=== PATIENT | male | born 1950 | race African-American/Black ===

== ENCOUNTER 2018-08-25 16:51 | Inpatient (IN) | payer OTHER, MEDICAID ==
[~2018-08-25] VITALS: Ht 188 cm; Wt 112.2 kg
[2018-08-25 19:01] LABS: Basophils # (auto) 0 uL; Basophils % (auto) 0.3 % (0.0-2.0); Eosinophils # (auto) 0 uL; Hematocrit 39.9 % (41.0-53.0); Hemoglobin 13.1 g/dL (13.5-17.5); Lymphocytes # (auto) 0.7 uL; Lymphocytes % (auto) 12.1 % (10.0-50.0); Mean Corpuscular Hemoglobin 28.5 pg (28.0-32.0); Mean Corpuscular Hgb Conc. 32.8 g/dL (32.0-36.0); Mean Corpuscular Volume 86.9 fL (80.0-100.0); Monocytes # (auto) 0.3 uL; Monocytes % (auto) 5.6 % (0.0-12.0); Neutrophils # (auto) 4.7 uL; Platelet Count (auto) 110 10^3/uL (140-450); Red Blood Cells 4.59 10^6/uL (4.5-5.90); Red Cell Distribution Width 16.4 % (11.8-14.3); White Blood Cell 5.7 10^3/uL (4.4-10.8)
[2018-08-25 19:17] LABS: INR 1.05 (0.9-1.15); Partial Thromboplastin Time 25.5 sec (23.64-32.05)
[2018-08-25 19:21] LABS: Alanine Aminotransferase 72 U/L (16-61); Albumin 3.5 g/dL (3.4-5.0); Anion Gap 12 (5-15); Aspartate Aminotransferase 63 U/L (15-37); BUN/Creatinine Ratio 26.9; Blood Urea Nitrogen 32 mg/dL (7-18); Calcium 8.4 mg/dL (8.5-10.1); Carbon Dioxide 24 mmol/L (21-32); Chloride 105 mmol/L (98-107); GFR African American 78 mL/min; GFR Non-African American 64 mL/min; Glucose 271 mg/dL (74-106); Magnesium 2.2 mg/dL (1.6-2.6); Potassium 4.3 mmol/L (3.5-5.1); Sodium 141 mmol/L (136-145)
[2018-08-25 19:26] LABS: Alkaline Phosphatase 66 U/L (45-117); Bilirubin, Total 0.5 mg/dL (0.2-1.0); Total Protein 8.6 g/dL (6.4-8.2)
[2018-08-25] MEDS ORDERED: ACETAMINOPHEN 325 MG TAB PO PRN (20:45)
[2018-08-25] MEDS ORDERED: ENOXAPARIN SOD 100 MG/1 ML SYRINGE SC ONE (20:45)
[2018-08-25] MEDS ORDERED: NITROGLYCERIN 0.4 MG SL TAB SL PRN (20:45)
[2018-08-25] MEDS ORDERED: DEXTROSE (50%) 50ML SYRG IV PRN (20:45)
[2018-08-25] MEDS ORDERED: MORPHINE SULF INJ 2 MG/ML SYRINGE 1ML IV PRN (20:45)
[2018-08-25] MEDS ORDERED: TEMAZEPAM 15 MG CAP PO PRN (20:45)
[2018-08-25] MEDS ORDERED: FUROSEMIDE 40 MG/4 ML VIAL IV ONE (20:45)
[2018-08-25] MEDS ORDERED: ONDANSETRON HCL 4 MG/2 ML VIAL IV PRN (20:45)
[2018-08-25] MEDS ORDERED: cefTRIAXone 1GM/50ML D5W 50 ML IV ONE (22:00)
[2018-08-25] MEDS: FAMOTIDINE 20 MG TAB PO SCH (22:17)
[2018-08-25] MEDS: ATORVASTATIN 20 MG TAB PO SCH (22:17)
[2018-08-25 23:15] VITALS: BP 148/96
--- NOTE | 2018-08-25 23:15 | NUR ---
TELE ADMIT FROM ER RECEIVED PATIENT VIA WHEELCHAIR FROM ER. PATIENT A/O X4, AMBULATORY WITH STEADY GAIT.NO S/S OF DISTRESS OR SOB. DENIES CHEST PAIN AT THIS TIME. UPDATED PATIENT ON POC, VERBALIZED UNDERSTANDING. BED LOCKED IN LOW POSITION, CALL LIGHT WITHIN REACH, WILL CONTINUE TO MONITOR PATIENT.
[2018-08-25 23:30] VITALS: BP 148/96
[2018-08-25] MEDS: HYDROcodone-ACET 5/325MG TAB PO PRN (23:39)
[2018-08-25] MEDS: guaiFENesin-CODEINE LIQUID 5 ML UD PO PRN (23:44)
[2018-08-25] MEDS: ACCU-CHEK COMFORT CURVE STRIP VI SCH (23:53)
[2018-08-25] MEDS: InsuLIN REG 1unit/0.01ml Soln (100units/ml) SC SCH (23:54)
[2018-08-26 04:55] VITALS: BP 135/69
[2018-08-26] MEDS: InsuLIN REG 1unit/0.01ml Soln (100units/ml) SC SCH ×3 (05:52→17:47)
[2018-08-26] MEDS: ACCU-CHEK COMFORT CURVE STRIP VI SCH ×3 (05:52→17:48)
[2018-08-26] MEDS: FUROSEMIDE 40 MG TAB PO SCH ×2 (05:52→17:48)
[2018-08-26] MEDS: HYDROcodone-ACET 5/325MG TAB PO PRN ×3 (05:53→21:33)
[2018-08-26] MEDS: guaiFENesin-CODEINE LIQUID 5 ML UD PO PRN ×2 (05:53→21:31)
[2018-08-26 06:07] LABS: Basophils # (auto) 0 uL; Eosinophils # (auto) 0 uL; Hemoglobin 11.9 g/dL (13.5-17.5); Lymphocytes # (auto) 0.9 uL; Lymphocytes % (auto) 23.7 % (10.0-50.0); Mean Corpuscular Hemoglobin 28.7 pg (28.0-32.0); Mean Corpuscular Hgb Conc. 33.1 g/dL (32.0-36.0); Mean Corpuscular Volume 86.8 fL (80.0-100.0); Monocytes # (auto) 0.3 uL; Neutrophils # (auto) 2.7 uL; Neutrophils % (auto) 69.3 % (37.0-80.0); Nucleated Red Blood Cells % 0.1 %; Platelet Count (auto) 96 10^3/uL (140-450); Red Blood Cells 4.15 10^6/uL (4.5-5.90); Red Cell Distribution Width 15.7 % (11.8-14.3); White Blood Cell 3.9 10^3/uL (4.4-10.8)
[2018-08-26 06:22] LABS: Albumin 3.1 g/dL (3.4-5.0); Anion Gap 9 (5-15); Calcium 8.3 mg/dL (8.5-10.1); Carbon Dioxide 28 mmol/L (21-32); Chloride 104 mmol/L (98-107); Glucose 179 mg/dL (74-106); Potassium 3.9 mmol/L (3.5-5.1); Sodium 141 mmol/L (136-145)
[2018-08-26 06:29] LABS: Alanine Aminotransferase 63 U/L (16-61); Alkaline Phosphatase 53 U/L (45-117); Aspartate Aminotransferase 50 U/L (15-37); BUN/Creatinine Ratio 29.3; Bilirubin, Total 0.5 mg/dL (0.2-1.0); Blood Urea Nitrogen 27 mg/dL (7-18); GFR African American 105 mL/min; GFR Non-African American 87 mL/min; Total Protein 7.7 g/dL (6.4-8.2)
[2018-08-26 08:00] VITALS: BP 129/81
--- NOTE | 2018-08-26 08:30 | NUR ---
Opening Shift Note Assumed care of patient, awake and alert. No S/S of distress/SOB or pain. Skin is warm and dry to touch, no s/s of hyperglycemia or hypoglycemia noted. Instructed on POC and to call for assist PRN, will continue to monitor for changes Q1hr and PRN.
[2018-08-26] MEDS: cefTRIAXone 1GM/50ML D5W 50 ML IV SCH (09:25)
[2018-08-26] MEDS: FAMOTIDINE 20 MG TAB PO SCH ×2 (09:26→21:32)
[2018-08-26] MEDS: ISOSORBIDE MONONITRATE 60 MG TAB PO SCH (09:26)
[2018-08-26] MEDS: ASPirin 81 mg TAB PO SCH (09:26)
[2018-08-26] MEDS: LOSARTAN POTASSIUM 25 MG TAB PO SCH (09:27)
[2018-08-26] MEDS ORDERED: ADENOSINE 93 MG in GIVE UN-DILUTED 0 ML IV STA (10:12)
--- NOTE | 2018-08-26 10:40 | NUR ---
Sohail (nuclear med) called stated patient had a stress test done on Friday at [facility], will request a result.
--- NOTE | 2018-08-26 10:42 | NUR ---
Melani MONTEJO) at bedside.
--- NOTE | 2018-08-26 11:00 | NUR ---
Lisy () faxed release patient info form to [facility] , awaiting to call back.
[2018-08-26] MEDS: CARVEDILOL 3.125 MG TAB PO SCH ×2 (11:16→21:32)
[2018-08-26 11:57] VITALS: BP 148/86
[2018-08-26] MEDS ORDERED: KETOROLAC TROMETH 15 mg/ml 1ML VL IV PRN (16:45)
[2018-08-26 16:59] VITALS: BP 169/76
[2018-08-26 17:00] VITALS: BP 124/68
--- NOTE | 2018-08-26 19:50 | NUR ---
OPENING NOTE ASSUMED PT CARE FROM DAY SHIFT NURSE. PT IS LAYING QUIETLY IN BED WITH NO S/S OF DISTRESS OR SOB. PT IS A/OX4. PT STATES THAT HE IS IN SOME MILD GENERALIZED PAIN AND WISHES TO TAKE A SHOWER. DISCUSSED THE AVAILABLE MEDICATIONS FOR PAIN AND OTHER NON-PHARM PAIN RELIEVING TECHNIQUES. DISCUSSED POC WITH PT. SAFETY MEASURES MAINTAINED WITH SIDE RAILS UP, BED IN LOWEST POSITION AND CALL LIGHT WITHIN REACH. WILL CONTINUE TO MONITOR FOR CHANGES Q1HR AND PRN.
[2018-08-26] MEDS: ATORVASTATIN 20 MG TAB PO SCH (21:31)
[2018-08-26 22:00] VITALS: BP 146/80
[2018-08-27] MEDS: ACCU-CHEK COMFORT CURVE STRIP VI SCH ×4 (01:05→18:07)
[2018-08-27] MEDS: InsuLIN REG 1unit/0.01ml Soln (100units/ml) SC SCH ×4 (01:05→18:07)
--- NOTE | 2018-08-27 04:19 | NUR ---
LOW BP ORNAMENTAL IRONWORKING SUPERVISOR ASSESSED PT'S BP, FIRST TRY WAS 88/33, SECOND ATTEMPT BP READ 82/36. PT WAS DROWSY AND SLEEPY, ELEVATED HOB AND WOKE UP PT. ASSESSED BP AGAIN AND IT READ 117/58. PT IS ASYMPTOMATIC AND 'SLEEPY'. TOOK THE BP MANUALLY TO BE SURE AND BP CAME BACK 122/59. PT IS A/OX4 AND NO OTHER COMPLAINTS EXCEPT FOR SOME MILD GENERALIZED PAIN. WILL CONTINUE TO MONITOR.
[2018-08-27 05:00] VITALS: BP 117/58
[2018-08-27] MEDS: FUROSEMIDE 40 MG TAB PO SCH ×2 (05:27→18:05)
--- NOTE | 2018-08-27 07:30 | NUR ---
Opening Shift Note Assumed care of patient, awake and alert. No S/S of distress/SOB or pain. Instructed on POC and to call for assist PRN, will continue to monitor for changes Q1hr and PRN. Bed in low and locked position, rails up x2, no-slip socks on.
[2018-08-27 08:00] VITALS: BP 137/74
[2018-08-27] MEDS: FAMOTIDINE 20 MG TAB PO SCH ×2 (09:48→21:26)
[2018-08-27] MEDS: cefTRIAXone 1GM/50ML D5W 50 ML IV SCH (09:48)
[2018-08-27] MEDS: POTASSIUM CHL 20 Meq TABLET PO SCH (09:48)
[2018-08-27] MEDS: ASPirin 81 mg TAB PO SCH (09:48)
[2018-08-27] MEDS: CARVEDILOL 3.125 MG TAB PO SCH ×2 (09:49→21:25)
[2018-08-27] MEDS: ISOSORBIDE MONONITRATE 60 MG TAB PO SCH (09:49)
[2018-08-27] MEDS: LOSARTAN POTASSIUM 25 MG TAB PO SCH (09:50)
--- NOTE | 2018-08-27 10:40 | NUR ---
IV removal AND IV insertion IV DC'd with clean sterile technique, catheter fully intact. Pressure dressing applied to site. Patient tolerated well. IV access obtained, via clean sterile technique by inserting 22 gauge catheter at right forearm after 1 attempt. IV secured properly. No trauma to site. Patient tolerated well.
--- NOTE | 2018-08-27 11:30 | NUR ---
DR Owen TABOR AT BEDSIDE
--- NOTE | 2018-08-27 11:42 | NUR ---
RE-FAXED RELEASE OF INFORMATION TO [facility] FOR PATIENTS STRESS TEST RESULTS. AWAITING RETURN FAX.
[2018-08-27 12:00] VITALS: BP 123/77
[2018-08-27] MEDS: guaiFENesin-CODEINE LIQUID 5 ML UD PO PRN (12:52)
--- NOTE | 2018-08-27 13:45 | NUR ---
RECEIVED FAX FROM [facility] STATING THAT THE STRESS TEST RESULTS HAVE YET TO BE DICTATED.
--- NOTE | 2018-08-27 14:01 | NUR ---
NOTIFIED DR MCDONALD THAT RESULTS FROM [facility] HAVEN'T BEEN DICTATED. NO NEW ORDERS RECEIVED. WILL ATTEMPT TO HAVE REQUEST RE-FAXED AT A LATER TIME.
[2018-08-27 17:00] VITALS: BP 125/60
[2018-08-27] MEDS: HYDROcodone-ACET 5/325MG TAB PO PRN (21:24)
[2018-08-27] MEDS: ATORVASTATIN 20 MG TAB PO SCH (21:24)
[2018-08-27] MEDS: SACUBITRIL-VALSARTAN 24mg/26mg TAB PO SCH (21:25)
[2018-08-27 22:00] VITALS: BP 122/70
[2018-08-28] MEDS: InsuLIN REG 1unit/0.01ml Soln (100units/ml) SC SCH ×3 (00:01→12:22)
[2018-08-28] MEDS: ACCU-CHEK COMFORT CURVE STRIP VI SCH ×3 (00:01→12:22)
[2018-08-28] MEDS: HYDROcodone-ACET 5/325MG TAB PO PRN ×2 (02:59→10:08)
[2018-08-28 05:22] VITALS: BP 118/76
[2018-08-28] MEDS: FUROSEMIDE 40 MG TAB PO SCH (06:00)
--- NOTE | 2018-08-28 07:45 | NUR ---
Opening Shift Note Assumed care of patient, awake, alert, and oriented x4. No S/S of distress/SOB, but patient is reporting upper left abdominal pain of 6/10. IV is in right forearm 2 gauge asymptomatic, intact, patent, and saline locked. Bed is locked and in lowest position and call light is within reach. Instructed on POC and to call for assist PRN, and patient verbalized understanding. Will continue to monitor for changes Q1hr and PRN.
[2018-08-28 08:00] VITALS: BP 125/71
[2018-08-28] MEDS: FAMOTIDINE 20 MG TAB PO SCH (10:00)
[2018-08-28] MEDS ORDERED: LOSARTAN POTASSIUM 25 MG TAB PO SCH (10:00)
[2018-08-28] MEDS: ASPirin 81 mg TAB PO SCH (10:00)
[2018-08-28] MEDS: cefTRIAXone 1GM/50ML D5W 50 ML IV SCH (10:00)
[2018-08-28] MEDS: POTASSIUM CHL 20 Meq TABLET PO SCH (10:08)
[2018-08-28] MEDS: ISOSORBIDE MONONITRATE 60 MG TAB PO SCH (10:09)
[2018-08-28] MEDS: CARVEDILOL 3.125 MG TAB PO SCH (10:10)
[2018-08-28] MEDS: SACUBITRIL-VALSARTAN 24mg/26mg TAB PO SCH (10:16)
[2018-08-28 12:00] VITALS: BP 137/87
--- NOTE | 2018-08-28 12:00 | NUR ---
Dr. Wang, Hospitalist, at bedside. New orders received.
[2018-08-28 13:33] VITALS: BP 137/87
--- NOTE | 2018-08-28 14:45 | NUR ---
Discharge instructions given as ordered. Encourage to follow up with PMD as instructed. All questions and concerns addressed. Patient verbalized understanding. Medication reconciliation form completed and copy given to patient. IV removed with catheter intact, pressure dressing applied. Telemetry unit returned to [facility].
--- NOTE | 2018-08-28 16:11 | NUR ---
Patient taken to [facility] via wheelchair with all personal belongings, accompanied by staff member. No distress noted at time of departure.
== END 2018-08-28 17:34 | disposition home or self-care (01) | DRG 280 ==
LOC: EDBD 16:51 → ER 16:57 → TELE 16:58 → TELE-WESTW 22:59
PROVIDERS: ADMIT Nurse Practitioner; ATTEND Family Medicine
DX: I21.A1 Myocardial infarction type 2 (principal); I50.43 Acute on chronic combined systolic (congestive) and diastolic (congestive) heart failure; I13.0 Hypertensive heart and chronic kidney disease with heart failure and stage 1 through stage 4 chronic kidney disease, or unspecified chronic kidney disease; J20.9 Acute bronchitis, unspecified; B19.20 Unspecified viral hepatitis C without hepatic coma; E11.65 Type 2 diabetes mellitus with hyperglycemia; E11.69 Type 2 diabetes mellitus with other specified complication; E11.22 Type 2 diabetes mellitus with diabetic chronic kidney disease; G40.909 Epilepsy, unspecified, not intractable, without status epilepticus; I08.0 Rheumatic disorders of both mitral and aortic valves; N18.9 Chronic kidney disease, unspecified; E78.5 Hyperlipidemia, unspecified; Z96.641 Presence of right artificial hip joint; F17.210 Nicotine dependence, cigarettes, uncomplicated; Z82.49 Family history of ischemic heart disease and other diseases of the circulatory system; Z83.3 Family history of diabetes mellitus; Z79.84 Long term (current) use of oral hypoglycemic drugs
CPT/HCPCS: 36415; 71045; 80053; 82962; 83036; 83735; 83880; 84484; 85025; 85610; 85730; 87081; 93005; 93306; 94761; 96365; 96367; 96372; 96375; G0378; J0153; J0696; J1815